=== PATIENT | male | born 1960 | race Caucasian/White ===

== ENCOUNTER 2019-01-30 11:08 | Inpatient (IN) | payer OTHER ==
[~2019-01-30] VITALS: Ht 180.3 cm; Wt 132.0 kg
[2019-01-30] MEDS ORDERED: IBUPROFEN600 MG PO (11:38)
[2019-01-30] MEDS ORDERED: MULTI VIT PO (11:38)
[2019-02-04] VITALS (9 sets, daily range): BP systolic 101–131; BP diastolic 46–72
--- NOTE | 2019-02-04 11:20 | NUR ---
PT ARRIVED TO MED/SURG ROOM 291 IN STABLE CONDITION VIA HOSPITAL BED ACCOMPANIED BY OR STAFF MEMBERS;BEDSIDE REPORT RECEIVED AT THIS TIME;PT POST OP RIGHT TOTAL HIP ARTHROPLASTY;PT A&O X3, DROWSY;ORIENTED TO ROOM AND CALL LIGHT SYSTEM;PT REPORTS MINIMAL PAIN AT THIS TIME,PAIN SCALE AND REPORTING EDUCATED;WT AND VS OBTAINED BY AIR[employer] [place];ASSESSMENT COMPLETED;RESPIRATIONS EVEN AND UNLABORED ON O2 @ 2L VIA NC, PT IS NOT O2 DEPENDENT;LUNG SOUNDS CLEAR/DIMINISHED;PT EDUCATED ON I.S USAGE AND VERBALIZES UNDERSTANDING;ABDOMEN SOFT ON PALPATION AND HYPOACTIVE IN ALL 4 QUADRANTS, LAST BM 02/03/19;RIGHT HIP INCISION WELL APPROX WITH PROVENA VAC IN PLACE;ABDUCTOR PILLOW NOTED;STRONG PEDAL PULSES;SCD TO LEFT LEG;#20G TO LEFT WRIST INFUSING LR @ 100ML/HR,SITE APPEARS HEALTHY;FRESH WATER PROVIDED;PT DENIES ANY ADDITIONAL NEEDS AT THIS TIME;ENCOURAGED TO CALL FOR ASSISTANCE IF NEEDED;FALL PRECAUTIONS NOTED WITH BED IN THE LOWEST POSITION AND CALL LIGHT IN REACH;WILL CONTINUE TO MONITOR
--- NOTE | 2019-02-04 11:40 | NUR ---
PT REPORTS RIGHT HIP PAIN RATING 6/10 ON THE PAIN SCALE AND REQUESTS PAIN MEDICATION, PT MEDICATED WITH PERCOCET 10/325MG 1 COMBO AT THIS TIME;WILL CONTINUE TO MONITOR FOR EFFECTIVENESS
--- NOTE | 2019-02-04 11:50 | NUR ---
PT REPORTS NAUSEA AND REQUESTS ANTIEMETIC;PT MEDICATED WITH PRN ZOFRAN 4MG IVP;WILL CONTINUE TO MONITOR
--- NOTE | 2019-02-04 12:45 | NUR ---
PT APPEARS TO BE SLEEPING IN SEMI FOWLERS POSITION;RESPIRATIONS EVEN AND UNLABORED ON O2 @ 2 VIA NC;NO S/S OF DISTRESS NOTED;IV FLUIDS INFUSING TO LEFT WRIST WITH EASE PER ORDER;PROVENA VAC IN PLACE AND PATENT;FALL PRECAUTIONS NOTED WITH CALL LIGHT IN REACH;WILL CONTINUE TO MONITOR
--- NOTE | 2019-02-04 14:25 | NUR ---
PHYSICAL THERAPY AT BEDSIDE WORKING WITH PATIENT.
--- NOTE | 2019-02-04 15:00 | NUR ---
PT EVALUATION WAS ATTEMPTED THIS PM, HOWEVER, PT WAS STILL GROGGY/SLEEPY AND WAS UNABLE TO PARTICIPATE. HE WAS THEN INSTRUCTED ON 3 EXERCISES HE COULD DO WHICH INCLUDED GLUTEAL AND QUADS SETS AND ANKLE PUMPS. HE WAS ALSO GIVEN A HANDOUT OF THE SAME EXERCISES FOR QUICK REFERENCE.
--- NOTE | 2019-02-04 16:07 | NUR ---
PT RESTING IN SEMI FOWLERS POSITION, A&O X3 BUT STILL REPORTS DROWINESS;RESPIRATIONS EVEN AND UNLABORED ON RA;PT DENIES ANY CURRENT PAIN OR DISCOMFORTS;IV FLUIDS INFUSING TO LEFT WRIST @ 100ML/HR PER ORDER;PROVENA DRAIN REMAINS PATENT TO RIGHT HIP;PT DENIES ANY ADDITIONAL NEEDS AT THIS TIME AND IS ENCOURAGED TO CALL FOR ASSISTANCE IF NEEDED;CALL LIGHT IN REACH;WILL CONTINUE TO MONITOR
--- NOTE | 2019-02-04 18:45 | NUR ---
PT RESTING IN BED WITH SPOUSE AT BEDSIDE;PT REPORTS RIGHT HIP PAIN RATING 2/10 ON THE PAIN SCALE AND NAUSEA AND REQUESTS MEDICATION, PT MEDICATED WITH PERCOCET 10/325MG PO 1 COMBO AND ZOFRAN 4 MG IVP;WILL CONTINUE TO MONITOR FOR EFFECTIVENESS
--- NOTE | 2019-02-04 20:35 | NUR ---
Patient resting in bed watching TV. A&O x3. Able to make needs known. No s/s of distress. Lungs clear, room air. Vitals stable. Denies pain. No needs at this time, will continue to monitor.
[2019-02-05] VITALS (7 sets, daily range): BP systolic 100–121; BP diastolic 46–74
--- NOTE | 2019-02-05 | NUR ---
Patient sleeping. No s/s of distress. Respirations even and unlabored. vitals stable. call light in reach. Continue to monitor.
--- NOTE | 2019-02-05 04:55 | NUR ---
Patient awake resting in bed. States pain is 4/10. Medicated per MAR orders. No other needs at this time. Continue to monitor.
[2019-02-05 05:05] LABS: HEMOGLOBIN 11.3 g/dl (14.0-18.0); MEAN CELL VOLUME 82.5 fL CALC (80.0-100.0); MEAN CORPUSCULAR HGB 26.7 pG CALC (26.0-32.0); MEAN CORPUSCULAR HGB CONC 32.3 g/L CALC (32.0-36.0); RED BLOOD COUNT 4.24 mill/uL (4.70-6.10); RED CELL DISTRI WIDTH 14.6 % (11.5-15.5)
[2019-02-05 05:27] LABS: ANION GAP 14 (6-22 (CALC)); BUN 21 mg/dL (9-20); BUN/CREATININE RATIO 24 (12-20 (CALC)); CARBON DIOXIDE 22 mmol/l (22-30); CHLORIDE 105 mmol/l (95-108); CREATININE 0.9 mg/dL (0.7-1.3); GFR > 60 ML/MIN (>=60 (CALC)); GFR FOR AFR.AMER. > 60 ML/MIN (>=60 (CALC)); POTASSIUM 4.5 mmol/l (3.5-5.1); SODIUM 137 mmol/l (137-146)
--- NOTE | 2019-02-05 07:20 | NUR ---
REPORT RECEIVED FROM ROMMELRN;PT RESTING IN SEMI FOWLERS POSITION;INTRODUCED SELF TO PT AND POC DISCUSSED;RESPIRATIONS EVEN AND UNLABORED ON RA;PT DENIES ANY CURRENT PAIN OR NEEDS;IV FLUIDS INFUSING TO LEFT WRIST WITH EASE;PT ENCOURAGED TO CALL FOR ASSISTANCE IF NEEDEDLFALL PRECAUTIONS IN PLACE WITH CALL LIGHT IN REACH;WILL CONTINUE TO MONITOR
--- NOTE | 2019-02-05 08:20 | NUR ---
PT RESTING IN SEMI FOWLERS POSITION,A&O X3;VS OBTAINED AND ASSESSMENT COMPLETED;PT POST OP DAY #1 RIGHT TOTAL HIP ARTHROPLASTY 02/04/19;PT REPORTS RIGHT HIP PAIN RATING 3/10 ON THE PAIN SCALE AND REQUESTS PAIN MEDICATION, PT TO BE MEDICATED WITH PERCOCET 10/325MG PO 1 COMBO;RESPIRATIONS EVEN AND UNLABORED ON RA, CLEAR/DIMINISHED LUNG SOUNDS;I.S. USAGE EDUCATED AND PT INSTRUCTED TO USE 10X PER HOUR, GOAL 1500;ABDOMEN DISTENDED/SOFT ON PALPATION AND HYPOACTIVE IN ALL 4 QUADRANTS;PROVENA WOUND VAC PATENT TO RIGHT HIP;ABDUCTOR PILLOW IN PLACE;STRONG PEDAL PULSES;#20G TO LEFT WRIST PATENT,IV FLUIDS D/C AT THIS TIME PER ORDER AND NEW DRESSING APPLIED;PT DENIES ANY ADDITIONAL NEEDS AT THIS TIME AND IS ENCOURAGED TO CALL FOR ASSISTANCE IF NEEDED;FALL PRECAUTIONS IN PLACE WITH CALL LIGHT IN REACH;WILL CONTINUE TO MONITOR
--- NOTE | 2019-02-05 08:31 | NUR ---
PHYSICAL THERAPY AT BEDSIDE
--- NOTE | 2019-02-05 10:00 | NUR ---
AT BEDSIDE DISCUSSING POC.
--- NOTE | 2019-02-05 12:20 | NUR ---
PT OOB RESTING IN RECLINER;RESPIRATIONS EVEN AND UNLABORED ON RA;PT DENIES ANY CURRENT PAIN OR DISCOMFORTS;IV SITE PATENT TO LEFT WRIST;PROVENA VAC PATENT AND IN PLACE;PT DENIES ANY ADDITIONAL NEEDS AT THIS TIME AND IS ENCOURAGED TO CALL FOR ASSISTANCE IF NEEDED;CALL LIGHT IN REACH;WILL CONTINUE TO MONITOR
--- NOTE | 2019-02-05 12:40 | NUR ---
PT AMBULATING THE HALLWAY WITH A STEADY GAIT AND 1 PERSON ASSIST.
--- NOTE | 2019-02-05 15:20 | NUR ---
PT ASSISTED FROM RECLINER TO BED WITH 1 PERSON ASSIST;PT RE-POSITIONED BACK INTO BED FOR COMFORT AND ABDUCTOR PILLOW PROVIDED;RESPIRATIONS EVEN AND UNLABORED ON RA;PT REPORTS RIGHT HIP PAIN RATING 6/10 ON THE PAIN SCALE AND REQUESTS PAIN MEDICATION, PT MEDICATED WITH PRN PERCOCET 10/325MG PO 1 COMBO;PT DENIES ANY ADDITIONAL NEEDS AT THIS TIME;SPOUSE AT BEDSIDE;ENCOURAGED TO CALL FOR ASSISTANCE IF NEEDED;CALL LIGHT IN REACH;WILL CONTINUE TO MONITOR
--- NOTE | 2019-02-05 16:16 | NUR ---
PHYSICAL THERAPY WORKING WITH PATIENT.
--- NOTE | 2019-02-05 16:46 | NUR ---
REFUSED PM TX. EXHAUSTED.
--- NOTE | 2019-02-05 19:18 | NUR ---
PT IS IN BED WATCHING TV, DENIES PAIN OR NEEDS AT THIS TIME. DRESSSING CDI W/WOUND VAC IN PLACE. WEDGE PLACED BETWEEN LEGS AND SCD TO LLE. WILL CONTINUE TO MONITOR. CALL LIGHT AT SIDE.
--- NOTE | 2019-02-05 21:25 | NUR ---
PT MEDICATED FOR PAIN 5/10 ON PAIN SCALE REPORTED IN R.HIP/THIGH AREA. MEDICATED OTHER ORDERS PROVIDE FOR PM MEDICATIONS. PT DENIES ANY OTHER NEEDS AT THIS TIME. IV FLUSHED AT THIS TIME TO LW/APPEARS PATENT AND HEALTHY AT THIS TIME.
--- NOTE | 2019-02-06 02:51 | NUR ---
PT AMBULATED TO RESTROOM AND BACK TO BED. WEDGE PLACED BETWEEN LEGS. PT URINATED 500CC OF DARK YELLOW URINE. PT MEDICATED FOR PAIN 5/10 ON PAIN SCALE. DENIES ANY OTHER NEEDS AT THIS TIME. CALL LIGHT IN HAND AND PT ENCOURAGED TO CALL NEEDS ARISE.
[2019-02-06 04:15] VITALS: BP 103/65
[2019-02-06 05:37] LABS: HEMATOCRIT 33.2 % (39.0-50.0); HEMOGLOBIN 10.5 g/dl (14.0-18.0)
--- NOTE | 2019-02-06 07:00 | NUR ---
SHIFT CHANGE REPORT, PT AWAKE ALERT AND ORIENTED RESTING IN BED, C/O PAIN TO RIGHT HIP AND WANTS TO KNOW IF HE ACCIDENTALLY DISLOCATED SURGICAL RIGHT HIP DURING THE HELLER WHEN HE TWISTED IT. ON OBSERVATION BOTH LEGS WERE EQUAL IN LENGTH AND NO ROTATION SEEN, WILL CONTINUE TO MONITOR, CALL ALBERT IN REACH.
[2019-02-06 08:10] VITALS: BP 108/65
--- NOTE | 2019-02-06 10:05 | NUR ---
AMBULATING HALLWAY AT THIS TIME WITH PHYSICAL THERAPIST.
[2019-02-06 11:22] VITALS: BP 113/71
--- NOTE | 2019-02-06 12:00 | NUR ---
RESTING IN BED AFTER AMBULATING WITH PHYSICAL THERAPIST, PAIN CONCERNS ADDRESSED.
--- NOTE | 2019-02-06 12:58 | NUR ---
PM- PT WAS SEEN FOR GT AND FA. HE WAS APPEARED ANXIOUS ASKING REPEATEDLY IF HE WAS DOING THE ACTIVITIES CORRECTLY. PT WAS REASSURED AND GIVEN VERBAL CUES DURING THE ACTIVITIES. HE REQUIRED MIN A ON SUPINE<>SIT AND SIT<>STAND. SOON THE PT IS IN STANDING POSITION, IT WAS EASIER FOR HIM TO MOVE AND AMB W/ RW AND CGA FROM THERAPIST. HE AMBULATED ~100 FT X 2 TODAY, HOWEVER EXPRESSED HIS RELUCTANCE TO BE DISCHARGED HOME DUE TO DIFFICULTY ON TRANSFERS. REVIEWED PROPER TRANSFER TECHNIQUES HE RETURNED TO HIS ROOM. HE WAS ASSISTED (CGA) TO RECLINER WITH LEG REST ELEVATED. ABDUCTION FOAM REPOSITIONED AND STRAPPED. AMPAC SCORE: 16 POINTS.
--- NOTE | 2019-02-06 14:29 | NUR ---
PM- PT WAS SEEN RESTING IN THE RECLINER. REQUESTED TO GO TO BATHROOM. SIT TO STAND REQUIRED 3 ATTEMPTS WITH MIN A FROM THERAPIST. PT EXPRESSED HIS FRUSTRATION PUSHING HIMSELF UP TO STAND FROM SITTING POSITION DUE TO HIS WEIGHT. HE THEN AMB FROM CHAIR TO BATHROOM ~ 7 FT W/ RW AND SBA. AFTERWARDS, HE AMBULATED IN THE HALLWAY ~ 100 FT X 2 WITH RW AND SBA W/ IMPROVED GAIT PATTERN. ASSISTED PT BACK TO BED WITH MOD A. ADVISED NURSE THAT ABDUCTION PILLOW WAS NOT IN PLACE SINCE HE NEEDED TO DO HIS EXERCISES. AMPAC SCORE: UNCHANGED
[2019-02-06 16:41] VITALS: BP 118/71
--- NOTE | 2019-02-06 19:10 | NUR ---
REPORT RECEIVED FROM MARITZA ARZOLA. PT RESTING IN BED. NO S/S OF DISTRESS AT THIS TIME. WILL CONTINUE TO MONITOR.
[2019-02-06 19:25] VITALS: BP 131/74
--- NOTE | 2019-02-06 21:00 | NUR ---
PT RESTING IN BED. ALERT AND ORIENTED. RESPIRATIONS EVEN AND UNLABORED ON RA. LUNGS SOUND CLEAR. PEDAL PULSES ARE STRONG. PT REPORTS PAIN OF A 4/10 PT TO BE MEDICATED, PER EMAR ORDERS. #20 LW PATENT AND APPEARS HEALTHY. SAFETY PRECAUTIONS IN PLACE. WILL CONTINUE TO MONITOR.
--- NOTE | 2019-02-07 00:37 | NUR ---
PT RESTING IN BED. NO S/S OF DISTRESS AT THIS TIME. RESPIRATIONS EVEN AND UNLABORED ON RA. SAFETY PRECAUTIONS IN PLACE. WILL CONTINUE TO MONITOR.
--- NOTE | 2019-02-07 02:36 | NUR ---
PT UP AMBULATING THE HALLS x1 ASSIST, USING WALKER, GATE STEAD, RESPIRATIONS EVEN AND UNLABORED.
[2019-02-07 04:00] VITALS: BP 118/74
--- NOTE | 2019-02-07 04:41 | NUR ---
PT RESTING IN BED. NO S/S OF DISTRESS AT THIS TIME. CALL ALBERT WITHIN REACH, WILL CONTINUE TO MONITOR.
[2019-02-07 05:15] LABS: HEMATOCRIT 33.1 % (39.0-50.0); HEMOGLOBIN 10.7 g/dl (14.0-18.0)
[2019-02-07 08:41] VITALS: BP 139/70
--- NOTE | 2019-02-07 08:52 | NUR ---
REPORT RECEIVED FROM MARITZA LEON. PT AMBULATED IN HALLWAYS W/ WALKER. STEADY GAIT. REPORTS MILD PAIN W/ MOVEMENT. REPORTING OF CONCERNS ENCOURAGED. CALL LIGHT REVIEWED AND IN REACH. PAIN MEDICATION ADN SCHEDULE REVIEWED. PT ALERT AND ORIENTED. LUNGS CLEAR. BOWEL SOUNDS PRESENT IN ALL 4 QUADS. SALINE LOCK #20 LW INTACT. PT REPORTS DISCHARGE TO REHAB FACILITY WHEN DISCHARGE ORDERED.
--- NOTE | 2019-02-07 09:50 | NUR ---
Therapist enterd Mr. Vásquez room as he was in semi-fowlers position, pt. agreed to participate in therapy session. Therapy was focused on gait training. Pt. ambulated around 220 feet , VC for erect posture, veneer cutter weight distribution through hands and increased stride lenghth with heel strike to toe off during ambulation. Re educated pt. on precautions of hip surgerey. Call villarreal and tray table by pt. side as he was in semi- fowlers position w/ adduction wedge placed per pt. request.
--- NOTE | 2019-02-07 10:00 | NUR ---
DR. AMAYA IN TO SEE PT.
[2019-02-07 15:23] VITALS: BP 121/68
--- NOTE | 2019-02-07 15:45 | NUR ---
PT SITTING UPRIGHT IN BED. REPORTS RELIEF OF PAIN FROM RECENT PERCOCET ADMINISTRATION. REPORTING OF CONCERNS/ RETURN OF PAIN ENCOURAGED. PT STATES UNDERSTANDING. CALL LIGHT WITHIN REACH.
--- NOTE | 2019-02-07 16:12 | NUR ---
GAIT TRAINING USING 2WW, SBA, 100 FEET WITH VERBAL AND VISUAL CUES ON PROPER POSTURE, GAIT PATTERN, AND TURNING TO PREVENT R LE ROTATION. PATIENT PRESENTED WITH SLIGHT ANTALGIC GAIT. PT EDUCATED AND INSTRUCTED PATIENT ON PROPER SIT <> STAND FROM BED TO PREVENT INCREASED PRESSURE AND STRESS ON R HIP. PATIENT ABLE TO CORRECTLY RETURN DEMONSTRATE THE SEQUENCING. SBA NEEDED FOR SAFETY. PT REVIEWED HIP PRECAUTIONS WITH PATIENT. MOD-A WITH BED MOBILITY SUPINE <> SIT, REQUIRES ASSIST ELEVATING AND LOWERING R LE IN AND OUT OF THE BED. VERBAL CUES NEEDED FOR PROPER AND SAFE SEQUENCING WHILE MAINTAINING HIP PRECAUTIONS. AMPAC SCORE = 14
--- NOTE | 2019-02-07 16:28 | NUR ---
Addendum to pror note written by Rashawn mcdonald. [facility] 6 score was 10
[2019-02-07 19:11] VITALS: BP 114/64
--- NOTE | 2019-02-07 19:36 | NUR ---
PT RESTING IN BED, DISCUSSED POC, PT ALERT AND ORIENTED X3, NO EDEMA. WEDGE TO BLE IN PLACE. DRESSING TO R HIP INTACT, WITH PORTABLE WOUND VAC AT CONTINUOUS SUCTION 125. PT STATES HE HAS NOT HAD A BM SINCE 02/03 BUT IS PASSING GAS. BS ACTIVE X4 QUADS. MEDICATED WITH STOOL SOFTENER AND MOM WITH WARM PRUNE JUICE. PT TOLERATED WELL. BSC PLACED OVER TOILET. ASSESSMENT COMPLETED, CALL LIGHT IN REACH,CONTINUE TO MONITOR.
--- NOTE | 2019-02-07 22:38 | NUR ---
ASSISTED PT BACK TO BED, WEDGE REPLACED. PT STATES HE WAS UNABLE TO HAVE A BM, MORE WARM PRUNE JUICE PROVIDED. CALL LIGHT IN REACH,CONTINUE TO MONITOR.
--- NOTE | 2019-02-07 22:52 | NUR ---
ASSISTED PT TO BATHROOM, PT AMBULATED WITH STEADY GAIT, INSTRUCTED TO PULL RED CORD FOR ASSISTANCE, PT VERBALIZED UNDERSTANDING. CONTINUE TO MONITOR.
--- NOTE | 2019-02-08 03:48 | NUR ---
PT RESTING IN BED, C/O PAIN 12/22, PT MEDICATED FOR PAIN. RESP EVEN AND UNLABORED. CALL LIGHT IN REACH,CONTINUE TO MONITOR.
[2019-02-08 04:26] VITALS: BP 119/70
[2019-02-08 05:34] LABS: HEMOGLOBIN 10.8 g/dl (14.0-18.0); MEAN CELL VOLUME 83.1 fL CALC (80.0-100.0); MEAN CORPUSCULAR HGB 26.4 pG CALC (26.0-32.0); MEAN CORPUSCULAR HGB CONC 31.8 g/L CALC (32.0-36.0); RED BLOOD COUNT 4.09 mill/uL (4.70-6.10); RED CELL DISTRI WIDTH 14.6 % (11.5-15.5)
[2019-02-08 05:49] LABS: BUN 18 mg/dL (9-20); BUN/CREATININE RATIO 21 (12-20 (CALC)); CHLORIDE 102 mmol/l (95-108); CREATININE 0.8 mg/dL (0.7-1.3); GFR > 60 ML/MIN (>=60 (CALC)); GFR FOR AFR.AMER. > 60 ML/MIN (>=60 (CALC)); SODIUM 137 mmol/l (137-146)
[2019-02-08 05:54] LABS: ANION GAP 10 (6-22 (CALC)); CARBON DIOXIDE 29 mmol/l (22-30)
--- NOTE | 2019-02-08 07:00 | NUR ---
SHIFT CHANGE REPORT, PT AWAKE ALERT AND ORIENTED, C/O MINIMAL PAIN TO RIGHT HIP, ABDUCTER WEDGE IN PLAC, SCD IN PLACE, WILL CONTINUE TO MONITOR AND ADDRESS NEEDS. CALL ALBERT IN REACH.
[2019-02-08 08:15] VITALS: BP 116/70
[2019-02-08] MEDS ORDERED: ASPIRIN EC325 M1 PO (11:08)
[2019-02-08] MEDS ORDERED: COLACE100 MG PO (11:08)
[2019-02-08] MEDS ORDERED: PERCOCET 10/31 COMBO PO (11:08)
--- NOTE | 2019-02-08 12:00 | NUR ---
AMBULATES IN HALLWAYS WITH PHYSICAL THERAPIST AND TO BR WITH SUPERVISION, ALL NEEDS MET/ADDRESSED, CALL ALBERT IN REACH.
[2019-02-08 15:52] VITALS: BP 131/50
--- NOTE | 2019-02-08 16:47 | NUR ---
The patient was seen in PM and we discussed DC. He is confortable with DC to [facility]. His am pac score supports this as well as he is 14. He is walking independently in the room. He voices understanding of the hip precautions and his HEP which he demonstrated. He also received a hip kit with a escrow officer, extended shoe horn, and sock shweta all to maintain his precation and make adls easier when home. He is ready for DC home with HH
--- NOTE | 2019-02-08 16:52 | NUR ---
RESTING IN BED AT THIS TIME AFTER HAVING SEVERAL BM'S, PAIN CONCERN ADDRESSED.
--- NOTE | 2019-02-08 18:04 | NUR ---
PATIENT PERFORMED GAIT TRAINING USING 2WW, 200 FEET, SBA WITH IMPROVED POSTURE, HEEL-TO-TOE PATTERN, AND SAFETY AWARENESS NOTED. PATIENT ABLE TO VERBALIZE HIP PRECAUTIONS. PATIENT STILL REQUIRES MIN-A WITH BED MOBILITY (SUPINE <> SIT) AND SIT <> STAND FROM BED. PATIENT STILL REQUIRES OCCASIONAL VERBAL CUES ON PROPER AND SAFE SEQUENCING FOR TRANSFERS. AMPAC = 15
--- NOTE | 2019-02-08 19:12 | NUR ---
REPORT RECEIVED FROM DAY NURSE. PT IS SITTING ON THE SIDE OF THE BED, NO S/O DISTRESS NOTED AT THIS TIME. WILL FOLLOW-UP W/ANY MEDICATIONS AND ASSESSMENT.
--- NOTE | 2019-02-08 19:40 | NUR ---
PT ASSESSED AND ASSISTED BACK INTO BED. WEDGE PLACED BETWEEN PT LEGS, SCD TO LLE. WOUND VAC TO R.HIP DRESSING CDI. GOOD ROM AND PULSE TO R.PEDAL. LUNG SOUNDS ARE CLEAR, ABD HYPERACTIVE BOWEL SOUNDS. PT REPORTS MULTIPLE STOOL THIS DAY. WILL CONINTUE TO MONITOR. PT RE-EDUCATED ON IS/VOICED UNDERSTANDING. PT LEFT USING IS. POC DISCUSSED W/PT AT THIS TIME. PT ENCOURAGED TO CALL NEEDS ARISE. CALL LIGHT AT SIDE OF HAND.
[2019-02-08 20:20] VITALS: BP 117/72
--- NOTE | 2019-02-09 00:48 | NUR ---
PT IS SLEEPING AT THIS TIME. NO S/O DISTRESS NOTED. CALL LIGHT AT SIDE.
--- NOTE | 2019-02-09 04:27 | NUR ---
PT SLEEPING, NO S/O DISTRESS CALL LIGHT AT SIDE.
--- NOTE | 2019-02-09 04:55 | NUR ---
PT MEDICATED FOR PAIN 3-4/10 ON PAIN SCALE REPORTED. AIDE WAS JUST IN W/PT ASSISTING TO RESTROOM, OBTAINING V/S. PT IS NOW BACK IN BED W/WEDGE BETWEEN BLE, SCD TO LLE. CALL LIGHT IN HAND, LIGHTS DOWN LOW. PT DENIES ANY OTHER NEEDS. ENCOURAGED TO USE IS WHILE AWAKE/VERBALIZED UNDERSTANDING AND REPORTS ITS USE. PT IS EXCITED TO "BE GOING HOME TODAY."
[2019-02-09 05:06] VITALS: BP 118/70
[2019-02-09 07:40] VITALS: BP 132/63
--- NOTE | 2019-02-09 07:43 | NUR ---
SHIFT CHANGE REPORT, PT AWAKE ALERT AND ORIENTED, REPORTS PAIN @ 3/10 TO RIGHT HIP, WOUND VAC IN PLACE WITH NO DRAINAGE, ALL NEEDS ADDRESSED, CALL ALBERT IN REACH.
[2019-02-09 15:35] VITALS: BP 114/73
[2019-02-09 20:00] VITALS: BP 128/78
--- NOTE | 2019-02-09 20:27 | NUR ---
PT MEDICATED ORDERS PROVIDE. ASSISTED MOVING FROM RECLINER TO BED. WOUND VAC ALARM SOUNDING/APPEARS TO HAVE A GOOD SEAL/DRESSING INTACT AND SEALED/SUCTION CHECKED, NO DRAINAGE VISIBLE AT IN CONTAINER,UNIT IS GETTING SUCTION/TROUBLESHOOTED RESET PER COMPANY INSTRUCTIONS, APPEARS TO BE WORKING PROPERLY W/APPROPRIATE SETTINGS AT THIS TIME. WILL CONITNUE TO MONITOR. SCD PLACED TO LLE AND ABDUCTOR WEDGE IN PLACE. WATER REPLENISHED AT THIS TIME. PT DENIES ANY OTHER NEEDS. CALL LIGHT AT SIDE AND PT ENCOURAGED TO CALL IF ANY NEEDS ARISE.
--- NOTE | 2019-02-10 00:20 | NUR ---
PT SLEEPING AT THIS TIME. NO S/O DISTRESS NOTED. CALL LIGHT AT SIDE.
--- NOTE | 2019-02-10 01:42 | NUR ---
PT SLEEPING W/LIGHTS ON AND TV ON LOW AT THIS TIME. CALL LIGHT AT SIDE. NO S/O DISTRESS NOTED.
--- NOTE | 2019-02-10 03:08 | NUR ---
PT SLEEPING W/LIGHTS AND TV ON LOW, NO S/O DISTRESS AT THIS TIME. CALL LIGHT AT SIDE.
[2019-02-10 04:00] VITALS: BP 128/78
--- NOTE | 2019-02-10 04:00 | NUR ---
PT MEDICATED FOR PAIN 3/10 ON PAIN SCALE. ASSISTED PT TO RESTROOM AND BACK TO BED USING WALKER. PT AMBULATED VERY WELL. ABDUCTOR WEDGE IN PLACE AND PT ASSISTED W/PO FLUIDS AND PROVIDED TISSUE. DENIES ANY OTHER NEEDS. WOUND VAC DRESSING TO R.HIP CDI W/STRONG SEAL. PT ASSISTED IN REPOSITIONING FOR COMFORT, CALL LIGHT AT SIDE AND PT ENCOURAGED TO CALL AGAIN IF ANY NEEDS ARISE OR IF HE NEEDS TO GET UP. AIDE ENTERING ROOM AT THIS TIME TO OBTAIN V/S.
[2019-02-10 07:21] VITALS: BP 112/69
--- NOTE | 2019-02-10 08:15 | NUR ---
ASSESSMENT DONE. PT IS A&O X3. PT DENIES PAIN AT THIS TIME. RESPS EVEN AND UNLABORED. I.S ENCOURAGE PT VERBALIZED UNDERSTANDING. RIGHT HIP WOUND VAC IN PLACE. NO IV SITE PER PT. PT STATED HE WILL WALK LATER. PT DENIES ANY NEEDS AT THIS TIME. CALL LIGHT IN REACH.
--- NOTE | 2019-02-10 09:03 | NUR ---
PT AMBULATING IN THE HALLWAYS USING A WALKER WITH A SLOW AND STEADY GAIT. INDUSTRIAL ENGINEERING INTERN AT SIDE.
--- NOTE | 2019-02-10 12:05 | NUR ---
PT IS SITTING IN RECLINER EATING HIS LUNCH WITH NO S/S OF DISTRESS NOTED. PT DENIES NEEDS AT THIS TIME. CALL LIGHT IN REACH.
[2019-02-10] MEDS ORDERED: ACETAMIN500 M2 PO (13:31)
--- NOTE | 2019-02-10 14:44 | NUR ---
Discharge instructions given. Patient verbalizes understanding of same. Discharged in stable condition via Wheelchair to Home with spouse. All belongings sent with pt.
== END 2019-02-10 14:44 | disposition home health service (06) | DRG 470 ==
LOC: MS2 02-04 06:03 → MS3 02-04 07:30 → EDUNIT# 02-04 15:45 → MS2 02-10 14:44
PROVIDERS: Internal Medicine; ADMIT Orthopaedic Surgery; ATTEND Orthopaedic Surgery
PROC: 0SR90JA Replacement of Right Hip Joint with Synthetic Substitute, Uncemented, Open Approach (ICD-10-PCS; principal; 2019-02-04)
DX: M16.11 Unilateral primary osteoarthritis, right hip (principal)
CPT/HCPCS: J0131; J1100; J2710